=== PATIENT | female | born 1940 | race Caucasian/White ===

== ENCOUNTER 2024-11-30 07:56 | Inpatient (IN) | payer MEDICARE ==
[2024-11-30] MEDS: SODIUM CHLORIDE 0.9% 500 ML 500 ML IV ONE (08:27)
[2024-11-30 08:38] LABS: Basophils # (A) 0.06 10*3/uL (0.00-0.10); Basophils % (A) 0.9 %; Eosinophils # (A) 0.04 10*3/uL (0.04-0.35); Eosinophils % (A) 0.6 %; HCT 34.1 % (37.2-46.3); HGB 11.4 g/dL (12.0-15.0); Lymphocytes # (A) 1.61 10*3/uL (0.90-5.00); Lymphocytes % (A) 24.1 %; MCH 31.5 pg (27.0-32.0); MCHC 33.4 g/dL (32.0-37.0); MCV 94.2 fL (80.0-97.0); Mean Platelet Volume 10.4 fL (9.5-12.2); Monocytes # (A) 0.54 10*3/uL (0.20-1.00); Monocytes % (A) 8.1 %; Neutrophils # (A) 4.04 10*3/uL (1.80-7.70); Neutrophils % (A) 60.6 %; Platelet Count 187 10*3/uL (140-440); RBC 3.62 10*6/uL (4.10-5.20); RDW 14.7 % (11.5-14.5); WBC 6.67 10*3/uL (4.50-10.00)
[2024-11-30 08:51] LABS: ALT 9 U/L (4-34); AST 18 U/L (14-36); African American GFR (CKD) 62 (>60 ml/min/1.73 sqM); Albumin 3.8 g/dL (3.5-5.0); Alkaline Phosphatase 68 U/L (38-126); Anion Gap 9 mmol/L; Blood Urea Nitrogen 23 mg/dL (7-17); Calcium 9.2 mg/dL (8.4-10.2); Carbon Dioxide 19 mmol/L (22-30); Chloride 114 mmol/L (98-107); Glucose 120 mg/dL (74-99); Non-African American GFR(CKD) 54 (>60 ml/min/1.73 sqM); Potassium 3.9 mmol/L (3.5-5.1); Sodium 142 mmol/L (137-145); Total Bilirubin 0.5 mg/dL (0.2-1.3); Total Protein 6.9 g/dL (6.3-8.2)
--- NOTE | 2024-11-30 09:01 | XR ---
EXAMINATION TYPE: XR chest 2V DATE OF EXAM: 11/30/2024 8:55 AM COMPARISON: Chest radiographs from 01/21/2012 TECHNIQUE: XR chest 2V Frontal and lateral views of the chest. CLINICAL INDICATION:Female, 84 years old with history of altered mental status; FINDINGS: Lungs/Pleura: There is no evidence of pleural effusion, focal consolidation, or pneumothorax. Pulmonary vascularity: Unremarkable. Heart/mediastinum: Cardiomediastinal silhouette is enlarged. Atherosclerotic calcifications are seen in the aorta. Musculoskeletal: No acute osseous pathology. IMPRESSION: 1. No acute cardiopulmonary disease/process. 2. Cardiomegaly. [facility], , 11/30/2024 8:59 AM
[2024-11-30 09:09] LABS: Partial Thromboplastin Time 19.7 sec (22.0-30.0)
--- NOTE | 2024-11-30 09:09 | CT ---
EXAMINATION TYPE: CT brain garrett wo con DATE OF EXAM: 11/30/2024 COMPARISON: CT brain 2011 CLINICAL INDICATION: Female, 84 years old with history of multiple falls, multiple falls. and AMS, ne ck pain. TECHNIQUE: CT scan of the head and cervical spine are performed without contrast. CT DLP: 1264.9 mGycm. Automated Exposure Control for Dose Reduction was Utilized. FINDINGS: There is no acute intracranial hemorrhage or midline shift identified. Moderate to severe ventricular and sulcal prominence is now seen. Mild to moderate low-attenuation in the periventricul ar white matter is now present. Persistent 1.4 cm ossified meningioma right frontal lobe axial image 36. The calvarium is intact. The globes are intact bilaterally. [id number] opacification anter ior ethmoid sinuses bilaterally is redemonstrated. Dependent fluid left maxillary sinus. There is mod erate mucosal thickening posterior inferior right maxillary sinus with additional dependent opacifica tion. Dependent fluid in the right sphenoid sinus. Cervical spine is visualized in its entirety from C1 through upper thoracic levels and demonstrates g rade 1 retrolisthesis C5 on C6 without evidence of acute fracture or dislocation. Prevertebral soft tissue appears within normal limits. The C1-C2 articulation is within normal limits on the coronal i mages. Vertebral body heights are preserved. Moderate disc space narrowing and spurring C4-C5 throug h C6-C7 levels is present. Axial images show multilevel left-sided uncovertebral facet degenerative c hanges. Thyroid gland is normal in size. Lung apices are clear without pneumothorax. IMPRESSION: 1. There is no acute fracture or dislocation evident in the cervical spine. 2. No acute intracranial hemorrhage or midline shift is seen. [facility], , 11/30/2024 9:07 AM
[2024-11-30 10:13] LABS: Appearance,Urine Clear (Clear); Bilirubin,Urine Negative (Negative); Blood,Urine Negative (Negative); Color,Urine Colorless; Glucose,Urine (UA) Negative (Negative); Ketones,Urine Negative (Negative); Leukocyte Esterase,Urine Negative (Negative); Nitrite,Urine Negative (Negative); Protein,Urine Negative (Negative); Specific Gravity,Urine 1.016 (1.001-1.035); Urobilinogen,Urine <2.0 mg/dL (<2.0)
--- NOTE | 2024-11-30 11:53 | ED ---
Altered Mental Status HPI - General Chief Complaint: Altered Mental Status Stated Complaint: AMS Time Seen by Provider: 11/30/24 08:03 Source: EMS Mode of arrival: EMS - History of Present Illness Initial Comments: 84-year-old female with past medical history of hypertension who presents emergency department with altered mental status. Daughter is at bedside and helps provide the history. States that the patient has been confused. She has been weak and had 2 unwitnessed falls the other day. The daughter stayed with her last night as she was worried about her. States that the patient was having difficulty ambulating. She is slow to respond to questioning. Patient previously lived alone and controlled all of her medications and meals however patient has no capacity to do this at this time. She was concern for urinary tract infection. Patient cannot provide much history. She denies any pain. Denies hitting her head. No other alleviating, precipitating or modifying factors - Related Data Home Medications Medication Instructions Recorded Confirmed Aspirin EC [Ecotrin] 325 mg PO DAILY 11/30/24 11/30/24 Donepezil [Aricept] 5 mg PO HS 11/30/24 11/30/24 Rosuvastatin Calcium 5 mg PO DAILY 11/30/24 11/30/24 Topiramate [Topamax] 50 mg PO BID 11/30/24 11/30/24 carvediloL [Coreg] 12.5 mg PO BID-W/MEALS 11/30/24 11/30/24 Previous Rx's Medication Instructions Recorded Topiramate [Topamax] 50 mg PO BID tab 12/04/24 Allergies Allergy/AdvReac Type Severity Reaction Status Date / Time No Known Allergies Allergy Verified 11/30/24 13:56 Review of Systems ROS Statement: Those systems with pertinent positive or pertinent negative responses have been documented in the HPI. ROS Other: All systems not noted in ROS Statement are negative. Past Medical History Past Medical History: Hypertension, Myocardial Infarction ([place]) Additional Past Medical History / Comment(s): heart disease History of Any Multi-Drug Resistant Organisms: None Reported Past Surgical History: Hernia Repair Smoking Status: Former smoker Past Alcohol Use History: None Reported Past Drug Use History: None Reported General Exam General appearance: alert, lethargic Head exam: Present: atraumatic, normocephalic, normal inspection Eye exam: Present: normal appearance, PERRL, EOMI. Absent: scleral icterus, conjunctival injection, periorbital swelling ENT exam: Present: normal exam, mucous membranes moist Neck exam: Present: normal inspection. Absent: tenderness, meningismus, lymphadenopathy Respiratory exam: Present: normal lung sounds bilaterally. Absent: respiratory distress, wheezes, rales, rhonchi, stridor Cardiovascular Exam: Present: regular rate, normal rhythm, normal heart sounds. Absent: systolic murmur, diastolic murmur, rubs, gallop, clicks GI/Abdominal exam: Present: soft, normal bowel sounds. Absent: distended, tenderness, guarding, rebound, rigid Extremities exam: Present: normal inspection, full ROM, normal capillary refill. Absent: tenderness, pedal edema, joint swelling, calf tenderness Back exam: Present: normal inspection Neurological exam: Present: alert, oriented X3, CN II-XII intact Psychiatric exam: Present: normal affect, normal mood Skin exam: Present: warm, dry, intact, normal color. Absent: rash Course Vital Signs 11/30/24 11/30/24 11/30/24 07:57 10:00 13:06 Temperature 98.8 F Pulse Rate 65 71 72 Respiratory 18 20 18 Rate Blood Pressure 176/70 172/74 175/76 O2 Sat by Pulse 98 97 98 Oximetry 11/30/24 11/30/24 11/30/24 14:25 16:57 18:00 Temperature Pulse Rate 69 76 62 Respiratory 20 18 18 Rate Blood Pressure 152/70 151/74 159/75 O2 Sat by Pulse 97 98 96 Oximetry 11/30/24 11/30/24 12/01/24 20:00 21:00 00:00 Temperature Pulse Rate 60 60 62 Respiratory 20 20 16 Rate Blood Pressure 145/73 145/68 139/65 O2 Sat by Pulse 96 97 97 Oximetry 12/01/24 12/01/24 12/01/24 02:00 04:00 06:00 Temperature Pulse Rate 58 L 63 60 Respiratory 16 16 16 Rate Blood Pressure 144/66 143/63 162/65 O2 Sat by Pulse 98 97 97 Oximetry Medical Decision Making - Medical Decision Making Was pt. sent in by a medical professional or institution (, PA, SNOWMAKER, urgent care, hospital, or intermediate...) When possible be specific @ -No Did you speak to anyone other than the patient for history (EMS, parent, family, police, friend...)? What history was obtained from this source @ -I spoke with the daughter for history Did you review nursing and triage notes (agree or disagree)? Why? @ -I reviewed and agree with nursing and triage notes Were old charts reviewed (outside hosp., previous admission, EMS record, old EKG, old radiological studies, urgent care reports/EKG's, intermediate records)? Report findings @ -No old charts were reviewed Differential Diagnosis (chest pain, altered mental status, abdominal pain women, abdominal pain men, vaginal bleeding, weakness, fever, dyspnea, syncope, hea dache, dizziness, GI bleed, back pain, seizure, CVA, palpatations, mental health, musculoskeletal)? @ -Differential Altered Mental Status: Hypoglycemia, DKA, hypercapnia, ETOH, overdose, CO poisoning, trauma, myxedema coma, HTN encephalopathy, infection, encephalitis, psychosis, intercranial hemor rhage, hepatic encephalopathy, meningitis, CVA, this is not meant to be an all- inclusive list EKG interpreted by me (3pts min.). @ -yes and demonstrates sinus rhythm with a rate of 63. MI interval 176. QRS 87. QTc of 446. No acute ST segment elevations or depressions X-rays interpreted by me (1pt min.). @ -Yes which demonstrates no acute process CT interpreted by me (1pt min.). @ -Yes which demonstrates no acute process U/S interpreted by me (1pt. min.). @ -None done What testing was considered but not performed or refused? (CT, X-rays, U/S, labs)? Why? @ -None What meds were considered but not given or refused? Why? @ -None Did you discuss the management of the patient with other professionals (professionals i.e. , PA, SNOWMAKER, lab, RT, psych nurse, psychosocial rehabilitation counselor, field care coordinator, teacher, safety officer, returned case inspector)? Give summary @ -Spoke with Dr. Reid who will admit the patient Was smoking cessation discussed for >3mins.? @ -No Was critical care preformed (if so, how long)? @ -No Were there social determinants of health that impacted care today? How? (Homelessness, low income, unemployed, alcoholism, drug addiction, transportation, low edu. Level, literacy, decrease access to med. care, intermediate, rehab)? @ -No Was there de-escalation of care discussed even if they declined (Discuss DNR or withdrawal of care, Hospice)? DNR status @ -No What co-morbidities impacted this encounter? (DM, HTN, Smoking, COPD, CAD, Cancer, CVA, ARF, Chemo, Hep., AIDS, mental health diagnosis, sleep apnea, morbid obesity)? @ -Dementia, hypertension Was patient admitted / discharged? Hospital course, mention meds given and route, prescriptions, significant lab abnormalities, going to OR and other pertinent info. @ -Upon arrival patient seen and evaluated in room 1. Thorough history and physical exam was performed. Access was established. Laboratory studies were conducted. Chest x-ray was performed. Patient does go for CT of the brain. Laboratory testing is all within normal limits. I did discuss this with patient's daughter. Due to her acute altered mental status I did recommend admission for further neurologic workup for which the patient and her daughter were agreeable. I spoke with Dr. Reid for the admission Undiagnosed new problem with uncertain prognosis? @ -Yes Drug Therapy requiring intensive monitoring for toxicity (Heparin, Nitro, Insulin, Cardizem)? @ -No Were any procedures done? @ -No Diagnosis/symptom? @ -Encephalopathy acute Acute, or Chronic, or Acute on Chronic? @ -Acute Uncomplicated (without systemic symptoms) or Complicated (systemic symptoms)? @ -Complicated Side effects of treatment? @ -No Exacerbation, Progression, or Severe Exacerbation? @ -No Poses a threat to life or bodily function? How? (Chest pain, [place], NH, pneumonia, PE, COPD, DKA, ARF, appy, cholecystitis, CVA, Diverticulitis, Homicidal, Suicidal, threat to staff... and all critical care pts) @ -No - Lab Data Result diagrams: 12/04/24 04:09 12/04/24 04:09 Lab Results 11/30/24 11/30/24 11/30/24 Range/Units 08:27 08:27 08:27 WBC 6.67 (4.50-10.00) 10*3/uL RBC 3.62 L (4.10-5.20) 10*6/uL Hgb 11.4 L (12.0-15.0) g/dL Hct 34.1 L (37.2-46.3) % MCV 94.2 (80.0-97.0) fL MCH 31.5 (27.0-32.0) pg MCHC 33.4 (32.0-37.0) g/dL Plt Count 187 (140-440) 10*3/uL MPV 10.4 (9.5-12.2) fL Immature Gran % (Auto) 5.7 % Neutrophils % 60.6 % Lymphocytes % 24.1 % Monocytes % 8.1 % Eosinophils % 0.6 % Basophils % 0.9 % Immature Gran # 0.38 H (0.00-0.04) 10*3/uL Neutrophils # 4.04 (1.80-7.70) 10*3/uL Lymphocytes # 1.61 (0.90-5.00) 10*3/uL Monocytes # 0.54 (0.20-1.00) 10*3/uL Eosinophils # 0.04 (0.04-0.35) 10*3/uL Basophils # 0.06 (0.00-0.10) 10*3/uL Manual Slide Review Performed PT 11.0 (10.0-12.5) sec INR 1.0 (<1.2) APTT 19.7 L (22.0-30.0) sec Sodium 142 (137-145) mmol/L Potassium 3.9 (3.5-5.1) mmol/L Chloride 114 H (98-107) mmol/L Carbon Dioxide 19 L (22-30) mmol/L Anion Gap 9 mmol/L BUN 23 H (7-17) mg/dL Creatinine 0.98 (0.52-1.04) mg/dL Est GFR (CKD-EPI)AfAm 62 (>60 ml/min/1.73 sqM) Est GFR (CKD-EPI)NonAf 54 (>60 ml/min/1.73 sqM) Glucose 120 H (74-99) mg/dL Calcium 9.2 (8.4-10.2) mg/dL Total Bilirubin 0.5 (0.2-1.3) mg/dL AST 18 (14-36) U/L ALT 9 (4-34) U/L Alkaline Phosphatase 68 (38-126) U/L Troponin I (0.000-0.034) ng/mL Total Protein 6.9 (6.3-8.2) g/dL Albumin 3.8 (3.5-5.0) g/dL Urine Color Urine Appearance (Clear) Urine pH (5.0-8.0) Ur Specific Niles (1.001-1.035) Urine Protein (Negative) Urine Glucose (UA) (Negative) Urine Ketones (Negative) Urine Blood (Negative) Urine Nitrite (Negative) Urine Bilirubin (Negative) Urine Urobilinogen (<2.0) mg/dL Ur Leukocyte Esterase (Negative) Topiramate (2.0-20.0) ug/mL 11/30/24 11/30/24 11/30/24 Range/Units 08:27 09:16 09:59 WBC (4.50-10.00) 10*3/uL RBC (4.10-5.20) 10*6/uL Hgb (12.0-15.0) g/dL Hct (37.2-46.3) % MCV (80.0-97.0) fL MCH (27.0-32.0) pg MCHC (32.0-37.0) g/dL Plt Count (140-440) 10*3/uL MPV (9.5-12.2) fL Immature Gran % (Auto) % Neutrophils % % Lymphocytes % % Monocytes % % Eosinophils % % Basophils % % Immature Gran # (0.00-0.04) 10*3/uL Neutrophils # (1.80-7.70) 10*3/uL Lymphocytes # (0.90-5.00) 10*3/uL Monocytes # (0.20-1.00) 10*3/uL Eosinophils # (0.04-0.35) 10*3/uL Basophils # (0.00-0.10) 10*3/uL Manual Slide Review PT (10.0-12.5) sec INR (<1.2) APTT (22.0-30.0) sec Sodium (137-145) mmol/L Potassium (3.5-5.1) mmol/L Chloride (98-107) mmol/L Carbon Dioxide (22-30) mmol/L Anion Gap mmol/L BUN (7-17) mg/dL Creatinine (0.52-1.04) mg/dL Est GFR (CKD-EPI)AfAm (>60 ml/min/1.73 sqM) Est GFR (CKD-EPI)NonAf (>60 ml/min/1.73 sqM) Glucose (74-99) mg/dL Calcium (8.4-10.2) mg/dL Total Bilirubin (0.2-1.3) mg/dL AST (14-36) U/L ALT (4-34) U/L Alkaline Phosphatase (38-126) U/L Troponin I <0.012 (0.000-0.034) ng/mL Total Protein (6.3-8.2) g/dL Albumin (3.5-5.0) g/dL Urine Color Colorless Urine Appearance Clear (Clear) Urine pH 7.0 (5.0-8.0) Ur Specific Niles 1.016 (1.001-1.035) Urine Protein Negative (Negative) Urine Glucose (UA) Negative (Negative) Urine Ketones Negative (Negative) Urine Blood Negative (Negative) Urine Nitrite Negative (Negative) Urine Bilirubin Negative (Negative) Urine Urobilinogen <2.0 (<2.0) mg/dL Ur Leukocyte Esterase Negative (Negative) Topiramate 9.7 (2.0-20.0) ug/mL Disposition Clinical Impression: Acute encephalopathy, Falls Disposition: ADMITTED IP TO THIS [facility] Condition: Stable Is patient prescribed a controlled substance at d/c from ED?: No Time of Disposition: 13:52 Decision to Admit Reason: Admit from EC Decision Date: 11/30/24 Decision Time: 13:52
[2024-11-30] MEDS ORDERED: NALOXONE 0.4 MG/ML 1 ML VIAL IV PRN (13:52)
[2024-11-30] MEDS: SODIUM CHLORIDE 0.9% 1,000 ML IV SCH (14:28)
[2024-11-30] MEDS ORDERED: ACETAMINOPHEN TAB 325 MG TAB PO PRN (15:42)
--- NOTE | 2024-11-30 15:47 | P.HPIM ---
History of Present Illness H&P Date: 11/30/24 This is an 84-year-old female medical history of hypertension, myocardial infarction, former smoker, memory impairment. Patient follows with Dr. De Leon on outpatient basis. Family bedside states that she recently underwent a mental status evaluation and scoring a 25 out of 30 consistent with moderate dementia. She has maintained on donepazil. Patient does live alone per the family. Has been falling over the last couple days and last night was noted to be confused and difficulty with ambulation and balancing while up to the bathroom per her daughter at the bedside. Patient is alert and oriented x 3 and currently resting comfortably in the ER. There are no focal neurological deficits evid ent. Patient denies any chest pain or shortness of breath. Head cervical spine CT revealed no acute fracture or dislocation evident in the cervical spine. No acute intracranial hemorrhage or midline shift is seen. Chest x-ray reveals no acute cardiopulmonary disease/process with cardiomegaly. EKG reveals sinus rhythm with a heart rate of 63. White blood cell count 6.67, hemoglobin 11.4. Sodium level of 142 BUN of 23 creatinine of 0.98. Glucose of 120. Troponin level was negative. Urinalysis was negative for infection. She will be evaluated by neurology and admitted for a stroke rule out. REVIEW OF SYSTEMS: CONSTITUTIONAL: No fever, no malaise, no fatigue. HEENT: No recent visual problems or hearing problems. Denied any sore throat. CARDIOVASCULAR: No chest pain, orthopnea, PND, no palpitations, no syncope. PULMONARY: No shortness of breath, no cough, no hemoptysis. GASTROINTESTINAL: No diarrhea, no nausea, no vomiting, no abdominal pain. NEUROLOGICAL: No headaches, no weakness, no numbness. HEMATOLOGICAL: Denies any bleeding or petechiae. GENITOURINARY: Denies any burning micturition, frequency, or urgency. MUSCULOSKELETAL/RHEUMATOLOGICAL: Denies any joint pain, swelling, or any muscle pain. ENDOCRINE: Denies any polyuria or polydipsia. The rest of the 14-point review of systems is negative. PHYSICAL EXAMINATION: GENERAL: The patient is alert and oriented x3, not in any acute distress. Well developed, well nourished. HEENT: Pupils are round and equally reacting to light. EOMI. No scleral icterus. No conjunctival pallor. Normocephalic, atraumatic. No pharyngeal erythema. No thyromegaly. CARDIOVASCULAR: S1 and S2 present. No murmurs, rubs, or gallops. PULMONARY: Chest is clear to auscultation, no wheezing or crackles. ABDOMEN: Soft, nontender, nondistended, normoactive bowel sounds. No palpable organomegaly. MUSCULOSKELETAL: No joint swelling or deformity. EXTREMITIES: No cyanosis, clubbing, or pedal edema. NEUROLOGICAL: Gross neurological examination did not reveal any focal deficits. SKIN: No rashes. Assessment and plan Altered mental status rule out TIA/ischemic stroke no signs of infection at this time Hypertension Dyslipidemia Former smoker Hx memory impairment and suspected moderate dementia GI prophylaxis DVT prophylaxis Full code Plan Resume appropriate home medications Pending neurology consultation PT OT and speech therapy been consulted Patient is admitted in observation The impression and plan of care has been dictated by Jessica Leonard Nurse Practitioner as directed. Dr. Jeanette MD I have performed a history and physical examination and medical decision making of this patient, discussed the same with the dictator, and agree with the dictators assessment and plan as written, documented as a scribe. Based on total visit time, I have performed more than 50% of this visit. Past Medical History Past Medical History: Hypertension, Myocardial Infarction ([place]) Additional Past Medical History / Comment(s): heart disease History of Any Multi-Drug Resistant Organisms: None Reported Past Surgical History: Hernia Repair Smoking Status: Former smoker Past Alcohol Use History: None Reported Past Drug Use History: None Reported Medications and Allergies Home Medications Medication Instructions Recorded Confirmed Type Aspirin EC [Ecotrin] 325 mg PO DAILY 11/30/24 11/30/24 History Donepezil [Aricept] 5 mg PO HS 11/30/24 11/30/24 History Rosuvastatin Calcium 5 mg PO DAILY 11/30/24 11/30/24 History Topiramate [Topamax] 50 mg PO BID 11/30/24 11/30/24 History carvediloL [Coreg] 12.5 mg PO BID-W/MEALS 11/30/24 11/30/24 History Allergies Allergy/AdvReac Type Severity Reaction Status Date / Time No Known Allergies Allergy Verified 11/30/24 13:56 Physical Exam Vitals: Vital Signs Temp Pulse Resp BP Pulse Ox 11/30/24 14:25 69 20 152/70 97 11/30/24 13:06 72 18 175/76 98 11/30/24 10:00 71 20 172/74 97 11/30/24 07:57 98.8 F 65 18 176/70 98 Intake and Output 11/30/24 11/30/24 11/30/24 06:59 14:59 22:59 Output Total 300 Balance -300 Output: Urine 300 Straight 300 Other: Weight 63.503 kg Results CBC & Chem 7: 11/30/24 08:27 11/30/24 08:27 Labs: Abnormal Lab Results - Last 24 Hours (Table) 11/30/24 11/30/24 11/30/24 Range/Units 08:27 08:27 08:27 RBC 3.62 L (4.10-5.20) 10*6/uL Hgb 11.4 L (12.0-15.0) g/dL Hct 34.1 L (37.2-46.3) % Immature Gran # 0.38 H (0.00-0.04) 10*3/uL APTT 19.7 L (22.0-30.0) sec Chloride 114 H (98-107) mmol/L Carbon Dioxide 19 L (22-30) mmol/L BUN 23 H (7-17) mg/dL Glucose 120 H (74-99) mg/dL Assessment and Plan Time with Patient: Less than 30
[2024-11-30 17:14] LABS: Glucose,Whole Blood 118 mg/dL (70-110)
[2024-11-30] MEDS: carvediloL 12.5 MG TAB PO SCH (17:19)
[2024-11-30] MEDS: TOPIRAMATE 25 MG TAB PO SCH (21:14)
[2024-11-30] MEDS: HEPARIN SODIUM,PORCINE 5,000 UNIT/ML 1 ML VIAL SQ SCH (21:15)
[2024-11-30] MEDS: DONEPEZIL 5 MG TAB PO SCH (21:15)
[2024-12-01] MEDS: ATORVASTATIN 10 MG TAB PO SCH (09:29)
[2024-12-01] MEDS: ASPIRIN 325 MG TAB PO SCH (09:29)
[2024-12-01 10:14] LABS: Basophils # (A) 0.05 X 10*3/uL (0.00-0.10); Eosinophils # (A) 0.04 X 10*3/uL (0.04-0.35); Eosinophils % (A) 0.8 %; HCT 33.3 % (37.2-46.3); HGB 10.7 g/dL (12.0-15.0); Lymphocytes # (A) 1.47 X 10*3/uL (0.90-5.00); Lymphocytes % (A) 28.3 %; MCH 31.2 pg (27.0-32.0); MCHC 32.1 g/dL (32.0-37.0); MCV 97.1 FL (80.0-97.0); Mean Platelet Volume 11.1 FL (9.5-12.2); Monocytes # (A) 0.53 X 10*3/uL (0.20-1.00); Monocytes % (A) 10.2 %; NRBC Per 100 WBC 0 X 10*3/uL (0.00-0.01); Neutrophils % (A) 57.8 %; Platelet Count 178 X 10*3/uL (140-440); RBC 3.43 X 10*6/uL (4.10-5.20); RDW 15.1 % (11.5-14.5); WBC 5.19 X 10*3/uL (4.50-10.00)
[2024-12-01 10:37] LABS: BUN/Creat Ratio 22.62 Ratio (12.00-20.00); Blood Urea Nitrogen 18.1 mg/dL (9.0-27.0); Calcium 8.4 mg/dL (8.7-10.3); Carbon Dioxide 19.4 mmol/L (21.6-31.8); Chloride 112 mmol/L (96-109); Glucose 93 mg/dL (70-110); Potassium 3.6 mmol/L (3.5-5.5); Sodium 141 mmol/L (135-145)
--- NOTE | 2024-12-01 14:43 | P.CNNES ---
History of Present Illness Consult date: 12/01/24 Requesting physician: Bebe Carrasco Reason for Consult: multiple falls, encephalopathy History of Present Illness: This is an 84-year-old woman presents emergency department because of multiple falls and confusion. Some of the history is obtained from the patient's [id number] who is at bedside. Seems that patient has been doing yard work and her [id number]-[id number]-ulz feels she overdid it on herself raking the leaves exerting herself and patient had 2 falls at night and she stated after fall she had back pain but denies any radicular symptoms and currently does not have any back pain. Upon asking her if she felt her legs gave out she stated possibly. She was crawling on the floor and it seems the fall happened at nighttime. She denies losing consciousness. She lives on her own. There is any upper extremit y weakness, any visual disturbance, any speech difficulty. She does have new onset dementia and she is on Aricept 5 mg daily. No history of seizure. She does have a history of TIA about 8 to 10 years ago. Denies of any headaches. She feels she is doing better. Some of the workup during this hospital visit consisted of: I reviewed the lab workup CT of the head is reported as no acute intracranial hemorrhage or midline shift. I personally reviewed the CT and I agree with the report. I also do not feel the patient has any acute ischemic stroke. If it seems that the patient has a right frontal meningioma. CT cervical spine is reported as no acute fracture or dislocation evident in the cervical spine. Review of Systems As per HPI. Past Medical History Past Medical History: CVA/TIA, Hypertension, Myocardial Infarction (ME) Additional Past Medical History / Comment(s): heart disease, silent heart attack, tia 2018? Last Myocardial Infarction Date:: unknown History of Any Multi-Drug Resistant Organisms: None Reported Past Surgical History: Hernia Repair Additional Past Surgical History / Comment(s): Lumps removed from left breast. Smoking Status: Never smoker Past Alcohol Use History: None Reported Past Drug Use History: None Reported Medications and Allergies Home Medications Medication Instructions Recorded Confirmed Type Aspirin EC [Ecotrin] 325 mg PO DAILY 11/30/24 11/30/24 History Donepezil [Aricept] 5 mg PO HS 11/30/24 11/30/24 History Rosuvastatin Calcium 5 mg PO DAILY 11/30/24 11/30/24 History Topiramate [Topamax] 50 mg PO BID 11/30/24 11/30/24 History carvediloL [Coreg] 12.5 mg PO BID-W/MEALS 11/30/24 11/30/24 History Allergies Allergy/AdvReac Type Severity Reaction Status Date / Time No Known Allergies Allergy Verified 11/30/24 13:56 Physical Examination - Vital Signs Vital Signs: Vital Signs Temp Pulse Pulse Pulse Pulse Pulse Resp 12/01/24 13:53 98.4 F 61 16 12/01/24 11:35 65 68 63 12/01/24 07:48 98.1 F 63 16 12/01/24 06:00 60 16 12/01/24 04:00 63 16 12/01/24 02:00 58 L 16 12/01/24 00:00 62 16 11/30/24 21:00 60 20 11/30/24 20:00 60 20 11/30/24 18:00 62 18 11/30/24 16:57 76 18 BP BP BP BP BP Pulse Ox 12/01/24 13:53 170/74 98 12/01/24 11:35 133/71 101/62 177/70 12/01/24 07:48 168/70 98 12/01/24 06:00 162/65 97 12/01/24 04:00 143/63 97 12/01/24 02:00 144/66 98 12/01/24 00:00 139/65 97 11/30/24 21:00 145/68 97 11/30/24 20:00 145/73 96 11/30/24 18:00 159/75 96 11/30/24 16:57 151/74 98 Intake and Output 11/30/24 12/01/24 12/01/24 22:59 06:59 14:59 Other: Voiding Method Toilet Weight 63.503 kg GENERAL: The patient is sitting in a recliner chair and is not in acute distress. NEUROLOGICAL: Higher mental function: The patient is awake, alert, oriented to self, place and time. Is slow to respond. Patient is following simple commands. No aphasia and no neglect. Cranial nerves: The pupils are round, equal and reactive to light and accommo dation. Visual bhatti are full to confrontation throughout. Extraocular movement is intact no nystagmus is noted. Facial sensation is normal to touch throughout. The facial strength is normal throughout. Hearing is severely decreased bilaterally to hand rub. Tongue is midline and moved [id number] without any difficulty. No dysarthria is noted. Shoulder shrug is normal bilaterally. Motor: Gait is taking short steps but not swaying one side or other and required minimal assistance. The strength is 5 over 5 throughout. Normal tone and bulk. Cerebellum: Normal finger to nose bilaterally. Sensation: Sensation is normal to touch throughout. Reflexes (right/left): 2+ throughout. Plantars are mute bilaterally. Results - Laboratory Findings CBC and BMP: 12/01/24 06:26 12/01/24 06:26 Abnormal Lab Findings: Abnormal Labs 11/30/24 11/30/24 11/30/24 08:27 08:27 08:27 RBC 3.62 L Hgb 11.4 L Hct 34.1 L MCV RDW Immature Gran # 0.38 H APTT 19.7 L Chloride 114 H Carbon Dioxide 19 L BUN 23 H BUN/Creatinine Ratio Glucose 120 H POC Glucose (mg/dL) Calcium 11/30/24 12/01/24 12/01/24 17:12 06:26 06:26 RBC 3.43 L Hgb 10.7 L Hct 33.3 L MCV 97.1 H RDW 15.1 H Immature Gran # 0.10 H APTT Chloride 112 H Carbon Dioxide 19.4 L BUN BUN/Creatinine Ratio 22.62 H Glucose POC Glucose (mg/dL) 118 H Calcium 8.4 L Assessment and Plan Assessment: This is an 84-year-old woman with new onset dementia who presents to the emergency department because of 2 falls and confusion. According to ckjfbxwt-bu-foe she feels the patient exerted herself working on the yard and according the patient maybe her leg gave out. She stated after the fall she had back pain but now she does not have any back pain. Recurrent falls with confusion unknown exact etiology. New onset dementia and patient is on Aricept History of TIA about 8 to 10 years ago Likely right frontal meningioma on the CT Plan: I ordered orthostatic vitals, routine EEG, MRI of the brain, CT lumbar Patient is on aspirin 325 daily and Lipitor 10 mg daily. Continue neurochecks PT OT are consulted Will defer the rest of the medical management to primary and other specialist Plan discussed with the patient, her [id number]-[id number]. Thank you for the consultation Dr. Eliseo harden neurology service tomorrow a.m. Time with Patient: Greater than 30
--- NOTE | 2024-12-01 15:09 | CT ---
EXAMINATION TYPE: CT lumbar spine wo con DATE OF EXAM: 12/01/2024 1:38 PM COMPARISON: None. CLINICAL INDICATION: Female, 84 years old with history of Falls, FALLS, pain TECHNIQUE: CT of the lumbar spine is performed on a spiral scan at 3 mm thick sections. Reconstructed images are performed in the coronal and sagittal planes. Contrast used: mL of , (none if empty) Oral contrast used: (none if empty) CT DLP: 758 mGycm, Automated exposure control for dose reduction was used. FINDINGS: T11-T12: No focal disc herniation or significant disc bulge is evident. No spinal canal stenosis o r neural foraminal stenosis is present. T12-L1: No focal disc herniation or significant disc bulge is evident. No spinal canal stenosis or neural foraminal stenosis is present. L1-L2: There is narrowing of disc height. Mild contact with the anterior thecal sac is present. No AP spinal canal stenosis is present. Mild left and moderate right foraminal stenosis is present. L2-L3: Mild disc bulge is present. No spinal canal stenosis is evident. Mild to moderate foraminal na rrowing is present bilaterally. L3-L4: Mild broad-based disc bulge is present with anterior thecal sac flattening. No AP spinal canal stenosis present. Facet hypertrophy is present with ligamentum flavum laxity causing some right post erior lateral thecal sac compression. Moderate bilateral foraminal narrowing is present L4-L5: A based disc bulge has mild anterior thecal sac flattening. Mild facet hypertrophy is present. No spinal canal stenosis is present. Moderate to severe bilateral foraminal narrowing is present L5-S1: There is a minimal retrolisthesis of L5 posterior on S1. There is loss of disc height to this level. Mild disc bulge is present. No spinal canal stenosis is evident. Facet hypertrophy is present. Severe bilateral foraminal stenosis is present. Mild posterior retrolisthesis of L5 posterior arch of S1. Vertebral alignment otherwise appears caden l. IMPRESSION: 1. Mild retrolisthesis L5-S1. 2. Degenerative disc changes L5-S1 and to a mild degree L1-2, L2-3. 3. Multilevel wodl-dk-yqaloxib foraminal narrowing. This may be greatest with moderate to severe fora agnes narrowing L4-5 bilaterally. Correlate with radicular symptoms. 4. Vertebral body heights are preserved. No acute osseous abnormality radiographically apparent [facility], , 12/01/2024 3:07 PM
--- NOTE | 2024-12-01 22:34 | P.PN ---
Subjective Progress Note Date: 12/01/24 This is an 84-year-old female medical history of hypertension, myocardial infarction, former smoker, memory impairment. Patient follows with Dr. De Leon on outpatient basis. Family bedside states that she recently underwent a mental status evaluation and scoring a 25 out of 30 consistent with moderate dementia. She has maintained on donepazil. Patient does live alone per the family. Has been falling over the last couple days and last night was noted to be confused and difficulty with ambulation and balancing while up to the bathroom per her daughter at the bedside. Patient is alert and oriented x 3 and currently resting comfortably in the ER. There are no focal neurological deficits evident. Patient denies any chest pain or shortness of breath. Head cervical spine CT revealed no acute fracture or dislocation evident in the cervical spine. No acute intracranial hemorrhage or midline shift is seen. Chest x-ray reveals no acute cardiopulmonary disease/process with cardiomegaly. EKG reveals sinus rhythm with a heart rate of 63. White blood cell count 6.67, hemoglobin 11.4. Sodium level of 142 BUN of 23 creatinine of 0.98. Glucose of 120. Troponin level was negative. Urinalysis was negative for infection. She will be evaluated by neurology and admitted for a stroke rule out. 12/01/2024 Patient evaluated today in follow up. Sitting up in the chair. Family at the bedside. Lumbar spine CT reveals moderate to severe foraminal narrowing L4-5 bilaterally. Correlate with radicular symptoms. Among other finding. She is awaiting EEG and brain MRI. REVIEW OF SYSTEMS: CONSTITUTIONAL: No fever, no malaise, no fatigue. HEENT: No recent visual problems or hearing problems. Denied any sore throat. CARDIOVASCULAR: No chest pain, orthopnea, PND, no palpitations, no syncope. PULMONARY: No shortness of breath, no cough, no hemoptysis. GASTROINTESTINAL: No diarrhea, no nausea, no vomiting, no abdominal pain. NEUROLOGICAL: No headaches, no weakness, no numbness. slight left facial droop and weakness on the left side. PHYSICAL EXAMINATION: GENERAL: The patient is alert and oriented x3, not in any acute distress. Well developed, well nourished. HEENT: Pupils are round and equally reacting to light. EOMI. No scleral icterus. No conjunctival pallor. Normocephalic, atraumatic. No pharyngeal erythema. No thyromegaly. CARDIOVASCULAR: S1 and S2 present. No murmurs, rubs, or gallops. PULMONARY: Chest is clear to auscultation, no wheezing or crackles. ABDOMEN: Soft, nontender, nondistended, normoactive bowel sounds. No palpable organomegaly. MUSCULOSKELETAL: No joint swelling or deformity. EXTREMITIES: No cyanosis, clubbing, or pedal edema. NEUROLOGICAL: Gross neurological examination did not reveal any focal deficits. SKIN: No rashes. Assessment and plan Altered mental status rule out TIA/ischemic stroke no signs of infection at this time Hypertension Dyslipidemia Former smoker Hx memory impairment and suspected moderate dementia GI prophylaxis DVT prophylaxis Full code Plan Resume appropriate home medications Pending neurology consultation PT OT and speech therapy been consulted PT recommending GUNNER on discharge Continue normal saline at 75 mls/hr Pending MRI and EEG The impression and plan of care has been dictated by Jessica Leonard, Nurse Practitioner as directed. Dr. Jeanette MD I have performed a history and physical examination and medical decision making of this patient, discussed the same with the dictator, and agree with the dictators assessment and plan as written, documented as a scribe. Based on total visit time, I have performed more than 50% of this visit. Objective - Vital Signs Vital signs: Vital Signs Temp 98.4 F 12/01/24 13:53 Pulse 61 12/01/24 13:53 Resp 16 12/01/24 13:53 BP 170/74 12/01/24 13:53 Pulse Ox 98 12/01/24 13:53 FiO2 Intake & Output 11/30/24 12/01/24 12/01/24 18:59 06:59 18:59 Output Total 300 Balance -300 Weight 63.503 kg 63.503 kg Output: Urine 300 Straight 300 Other: Voiding Method Toilet - Labs CBC & Chem 7: 12/01/24 06:26 12/01/24 06:26 Labs: Abnormal Lab Results - Last 24 Hours (Table) 11/30/24 12/01/24 12/01/24 Range/Units 17:12 06:26 06:26 RBC 3.43 L (4.10-5.20) X 10*6/uL Hgb 10.7 L (12.0-15.0) g/dL Hct 33.3 L (37.2-46.3) % MCV 97.1 H (80.0-97.0) FL RDW 15.1 H (11.5-14.5) % Immature Gran # 0.10 H (0.00-0.04) X 10*3/uL Chloride 112 H (96-109) mmol/L Carbon Dioxide 19.4 L (21.6-31.8) mmol/L BUN/Creatinine Ratio 22.62 H (12.00-20.00) Ratio POC Glucose (mg/dL) 118 H (70-110) mg/dL Calcium 8.4 L (8.7-10.3) mg/dL Assessment and Plan Time with Patient: Less than 30
--- NOTE | 2024-12-02 00:01 | EEG ---
ELECTROENCEPHALOGRAM REPORT EEG Report. CLINICAL HISTORY: This is an 84-year-old woman with altered mental status. The video EEG is obtained to evaluate for seizure epileptiform activity. RELEVANT MEDICATION: Topiramate. EEG TYPE: Routine 21-channel EEG with video using the 10/20 electrode system. DESCRIPTION: Wakefulness is only obtained. During awake state, posterior-dominant rhythm consists of ncx-ni-[id number] voltage of 8.5 hertz activity that is well modulated, well sustained. There is no physiological stage 2 sleep architecture. There is no focal slowing. Interictal and ictal is none. ACTIVATION PROCEDURE: Photic stimulation did evoke a posterior driving response at multiple flash frequencies. There is no abnormality during photic stimulation. Hyperventilation is not performed. CLINICAL INTERPRETATION: This is a normal routine EEG during awake state. There is no focal slowing, epileptiform discharge, or seizure on the EEG. A normal routine EEG does not rule out underlying epilepsy. Clinical correlation is recommended. MMMIGUEL / CARLN: [id number] / MTDD
--- NOTE | 2024-12-02 14:40 | P.PN ---
Subjective Progress Note Date: 12/02/24 This is an 84-year-old female medical history of hypertension, myocardial infarction, former smoker, memory impairment. Patient follows with Dr. De Leon on outpatient basis. Family bedside states that she recently underwent a mental status evaluation and scoring a 25 out of 30 consistent with moderate dementia. She has maintained on donepazil. Patient does live alone per the family. Has been falling over the last couple days and last night was noted to be confused and difficulty with ambulation and balancing while up to the bathroom per her daughter at the bedside. Patient is alert and oriented x 3 and currently resting comfortably in the ER. There are no focal neurological deficits evident. Patient denies any chest pain or shortness of breath. Head cervical spine CT revealed no acute fracture or dislocation evident in the cervical spine. No acute intracranial hemorrhage or midline shift is seen. Chest x-ray reveals no acute cardiopulmonary disease/process with cardiomegaly. EKG reveals sinus rhythm with a heart rate of 63. White blood cell count 6.67, hemoglobin 11.4. Sodium level of 142 BUN of 23 creatinine of 0.98. Glucose of 120. Troponin level was negative. Urinalysis was negative for infection. She will be evaluated by neurology and admitted for a stroke rule out. 12/01/2024 Patient evaluated today in follow up. Sitting up in the chair. Family at the bedside. Lumbar spine CT reveals moderate to severe foraminal narrowing L4-5 bilaterally. Correlate with radicular symptoms. Among other finding. She is awaiting EEG and brain MRI. 12/02/2024 Patient is evaluated in follow-up. She is sitting up at the bedside with family present. Lumbar spine discussed. Will follow-up with orthopedic spinal surgery on an outpatient basis. Patient's EEG was not suggestive of any seizure-like activity. She will be going for an MRI at [facility] today. Neurology to follow-up tomorrow. PT recommending subacute rehab. REVIEW OF SYSTEMS: CONSTITUTIONAL: No fever, no malaise, no fatigue. HEENT: No recent visual problems or hearing problems. Denied any sore throat. CARDIOVASCULAR: No chest pain, orthopnea, PND, no palpitations, no syncope. PULMONARY: No shortness of breath, no cough, no hemoptysis. GASTROINTESTINAL: No diarrhea, no nausea, no vomiting, no abdominal pain. NEUROLOGICAL: No headaches, no weakness, no numbness. slight left facial droop and weakness on the left side. PHYSICAL EXAMINATION: GENERAL: The patient is alert and oriented x3, not in any acute distress. Well developed, well nourished. HEENT: Pupils are round and equally reacting to light. EOMI. No scleral icterus. No conjunctival pallor. Normocephalic, atraumatic. No pharyngeal erythema. No thyromegaly. CARDIOVASCULAR: S1 and S2 present. No murmurs, rubs, or gallops. PULMONARY: Chest is clear to auscultation, no wheezing or crackles. ABDOMEN: Soft, nontender, nondistended, normoactive bowel sounds. No palpable organomegaly. MUSCULOSKELETAL: No joint swelling or deformity. EXTREMITIES: No cyanosis, clubbing, or pedal edema. NEUROLOGICAL: Gross neurological examination did not reveal any focal deficits. SKIN: No rashes. Assessment and plan Altered mental status rule out TIA/ischemic stroke no signs of infection at this time Hypertension Dyslipidemia Former smoker Hx memory impairment and suspected moderate dementia moderate to severe foraminal narrowing L4-5 bilaterally GI prophylaxis DVT prophylaxis Full code Plan Resume appropriate home medications Pending neurology consultation PT OT and speech therapy been consulted PT recommending GUNNER on discharge Continue normal saline at 75 mls/hr Encourage oral intake. EEG does not reveal any seizure-like activity. Brain MRI at 445 today. The impression and plan of care has been dictated by Jessica Leonard, Nurse Practitioner as directed. Dr. Jeanette MD I have performed a history and physical examination and medical decision making of this patient, discussed the same with the dictator, and agree with the dictators assessment and plan as written, documented as a scribe. Based on total visit time, I have performed more than 50% of this visit. Objective - Vital Signs Vital signs: Vital Signs Temp 98.5 F 12/02/24 07:55 Pulse 72 12/02/24 07:55 Resp 18 12/02/24 07:55 BP 163/72 12/02/24 07:55 Pulse Ox 97 12/02/24 07:55 FiO2 Intake & Output 12/01/24 12/02/24 12/02/24 18:59 06:59 18:59 Intake Total 380 Balance 380 Weight 63.503 kg Intake: Oral 380 Other: Voiding Method Toilet Toilet # Voids 2 2 - Labs CBC & Chem 7: 12/01/24 06:26 12/01/24 06:26 Assessment and Plan Time with Patient: Less than 30
--- NOTE | 2024-12-02 18:29 | MR ---
EXAMINATION TYPE: MR brain wo con DATE OF EXAM: 12/02/2024 5:12 PM COMPARISON: 11/30/2024. CLINICAL INDICATION: Female, 84 years old with history of confusion; TECHNIQUE: Multi planar, multi sequence imaging was performed through the brain including: T1, T2, In version recovery, Diffusion weighted imaging, and gradient echo imaging. No gadolinium was given. FINDINGS: Right frontal lobe dural based 14 mm extra-axial lesion most compatible with meningioma leonidas kamala low T1 low T2 signal with blooming artifact. Mild cerebral atrophy with proportional dilation of ventricular system. Scattered foci of high T2 signal intensity are seen within the periventricular white matter. Midline structures show no abnormality. Diffusion-weighted imaging shows no evidence of restricted diffusion. The susceptibility weighted images do not reveal any evidence for micro-hemorr varsha. The bone marrow signal is within normal limits. Paranasal sinuses and mastoid air cells: Mild/moderate paranasal sinus mucosal thickening. Trace flui d in the bilateral mastoid air cells. Visualized orbits: Orbital contents are intact. IMPRESSION: 1. No evidence of intracranial mass or acute/subacute infarct. 2. Nonspecific white matter changes, likely secondary to small vessel ischemic disease. 3. Trace bilateral mastoid air cell effusions. 4. Right frontal lobe calcified meningioma. 5. Moderate mucosal thickening of the maxillary sinuses. 6. [facility], , 12/02/2024 6:27 PM
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
[2024-12-04 07:47] VITALS: BP 154/73; RESP 16; TEMP 98.3
[2024-12-04 08:14] LABS: BUN/Creat Ratio 16.62 Ratio (12.00-20.00); Blood Urea Nitrogen 13.3 mg/dL (9.0-27.0); Calcium 8.3 mg/dL (8.7-10.3); Carbon Dioxide 18.4 mmol/L (21.6-31.8); Chloride 110 mmol/L (96-109); Glucose 110 mg/dL (70-110); Potassium 3.7 mmol/L (3.5-5.5); Sodium 137 mmol/L (135-145)
[2024-12-04 08:36] LABS: Basophils # (A) 0.05 X 10*3/uL (0.00-0.10); Eosinophils # (A) 0.07 X 10*3/uL (0.04-0.35); Eosinophils % (A) 1.4 %; HCT 30.3 % (37.2-46.3); HGB 9.9 g/dL (12.0-15.0); Lymphocytes # (A) 1.62 X 10*3/uL (0.90-5.00); Lymphocytes % (A) 33.3 %; MCH 31.4 pg (27.0-32.0); MCHC 32.7 g/dL (32.0-37.0); MCV 96.2 FL (80.0-97.0); Mean Platelet Volume 11.2 FL (9.5-12.2); Monocytes # (A) 0.42 X 10*3/uL (0.20-1.00); Monocytes % (A) 8.6 %; NRBC Per 100 WBC 0 X 10*3/uL (0.00-0.01); Neutrophils # (A) 2.65 X 10*3/uL (1.80-7.70); Neutrophils % (A) 54.7 %; Platelet Count 156 X 10*3/uL (140-440); RBC 3.15 X 10*6/uL (4.10-5.20); RDW 15.6 % (11.5-14.5); WBC 4.86 X 10*3/uL (4.50-10.00)
--- NOTE | 2024-12-04 08:54 | P.PN ---
Subjective Progress Note Date: 12/03/24 This is an 84-year-old female medical history of hypertension, myocardial infarction, former smoker, memory impairment. Patient follows with Dr. De Leon on outpatient basis. Family bedside states that she recently underwent a mental status evaluation and scoring a 25 out of 30 consistent with moderate dementia. She has maintained on donepazil. Patient does live alone per the family. Has been falling over the last couple days and last night was noted to be confused and difficulty with ambulation and balancing while up to the bathroom per her daughter at the bedside. Patient is alert and oriented x 3 and currently resting comfortably in the ER. There are no focal neurological deficits evident. Patient denies any chest pain or shortness of breath. Head cervical spine CT revealed no acute fracture or dislocation evident in the cervical spine. No acute intracranial hemorrhage or midline shift is seen. Chest x-ray reveals no acute cardiopulmonary disease/process with cardiomegaly. EKG reveals sinus rhythm with a heart rate of 63. White blood cell count 6.67, hemoglobin 11.4. Sodium level of 142 BUN of 23 creatinine of 0.98. Glucose of 120. Troponin level was negative. Urinalysis was negative for infection. She will be evaluated by neurology and admitted for a stroke rule out. 12/01/2024 Patient evaluated today in follow up. Sitting up in the chair. Family at the bedside. Lumbar spine CT reveals moderate to severe foraminal narrowing L4-5 bilaterally. Correlate with radicular symptoms. Among other finding. She is awaiting EEG and brain MRI. 12/02/2024 Patient is evaluated in follow-up. She is sitting up at the bedside with family present. Lumbar spine discussed. Will follow-up with orthopedic spinal surgery on an outpatient basis. Patient's EEG was not suggestive of any seizure-like activity. She will be going for an MRI at 445 today. Neurology to follow-up tomorrow. PT recommending subacute rehab. 12/03/2024 Patient evaluated in follow up. Brain MRI and EEG are both unremarkable. Pending social work follow up for social work follow up. REVIEW OF SYSTEMS: CONSTITUTIONAL: No fever, no malaise, no fatigue. HEENT: No recent visual problems or hearing problems. Denied any sore throat. CARDIOVASCULAR: No chest pain, orthopnea, PND, no palpitations, no syncope. PULMONARY: No shortness of breath, no cough, no hemoptysis. GASTROINTESTINAL: No diarrhea, no nausea, no vomiting, no abdominal pain. NEUROLOGICAL: No headaches, no weakness, no numbness. slight left facial droop and weakness on the left side. PHYSICAL EXAMINATION: GENERAL: The patient is alert and oriented x3, not in any acute distress. Well developed, well nourished. HEENT: Pupils are round and equally reacting to light. EOMI. No scleral icterus. No conjunctival pallor. Normocephalic, atraumatic. No pharyngeal erythema. No thyromegaly. CARDIOVASCULAR: S1 and S2 present. No murmurs, rubs, or gallops. PULMONARY: Chest is clear to auscultation, no wheezing or crackles. ABDOMEN: Soft, nontender, nondistended, normoactive bowel sounds. No palpable organomegaly. MUSCULOSKELETAL: No joint swelling or deformity. EXTREMITIES: No cyanosis, clubbing, or pedal edema. NEUROLOGICAL: Gross neurological examination did not reveal any focal deficits. SKIN: No rashes. Assessment and plan Altered mental status rule out TIA/ischemic stroke no signs of infection at this time Hypertension Dyslipidemia Former smoker Hx memory impairment and suspected moderate dementia moderate to severe foraminal narrowing L4-5 bilaterally GI prophylaxis DVT prophylaxis Full code Plan Resume appropriate home medications Pending neurology consultation PT OT and speech therapy been consulted PT recommending G[facility] on discharge Continue normal saline at 75 mls/hr Encourage oral intake. EEG does not reveal any seizure-like activity. Brain MRI reveals no stroke Social work to follow up Wednesday The impression and plan of care has been dictated by Jessica Leonard, Nurse Practitioner as directed. Dr. Jeanette MD I have performed a history and physical examination and medical decision making of this patient, discussed the same with the dictator, and agree with the dictators assessment and plan as written, documented as a scribe. Based on total visit time, I have performed more than 50% of this visit. Objective - Vital Signs Vital signs: Vital Signs Temp 98.2 F 12/03/24 20:00 Pulse 64 12/03/24 20:00 Resp 16 12/03/24 14:00 BP 162/71 12/03/24 20:00 Pulse Ox 98 12/03/24 14:00 FiO2 Intake & Output 12/03/24 12/03/24 12/04/24 06:59 18:59 06:59 Intake Total 480 Balance 480 Intake: Oral 480 Other: Voiding Method Toilet Toilet # Voids 2 - Labs CBC & Chem 7: 12/04/24 04:09 12/04/24 04:09 Assessment and Plan Time with Patient: Less than 30
--- NOTE | 2024-12-04 09:44 | P.DS ---
Providers Date of admission: 11/30/24 13:55 Attending physician: Sierra Reid Consults: 11/30/24 13:52 Consult Physician Urgent Consulting Provider: Jose Moss Consult Reason/Comments: multiple falls, encephalopathy Do you want consulting provider notified?: Yes Primary care physician: Gorge De Leon [facility] Course: Final Diagnosis Altered mental status rule out TIA/ischemic stroke no signs of infection at this time Hypertension Dyslipidemia Former smoker Hx memory impairment and suspected moderate dementia moderate to severe foraminal narrowing L4-5 bilaterally Discharge Disposition Patient stable for discharge to subacute rehab today. Authorization is pending at this time if you see patient will be medically cleared for discharge today. Recommend to follow with Dr. De Leon in 1 to 2 days and recommend to repeat her blood work in 3 to 4 days. Hospital Course This is an 84-year-old female medical history of hypertension, myocardial infarction, former smoker, memory impairment. Patient follows with Dr. De Leon on outpatient basis. Family bedside states that she recently underwent a mental status evaluation and scoring a 25 out of 30 consistent with moderate dementia. She has maintained on donepazil. Patient does live alone per the family. Has been falling over the last couple days and last night was noted to be confused and difficulty with ambulation and balancing while up to the bathroom per her daughter at the bedside. Patient is alert and oriented x 3 and currently resting comfortably in the ER. There are no focal neurological deficits evident. Patient denies any chest pain or shortness of breath. Head cervical spine CT revealed no acute fracture or dislocation evident in the cervical spine. No acute intracranial hemorrhage or midline shift is seen. Chest x-ray reveals no acute cardiopulmonary disease/process with cardiomegaly. EKG reveals sinus rhythm with a heart rate of 63. White blood cell count 6.67, hemoglobin 11.4. Sodium level of 142 BUN of 23 creatinine of 0.98. Glucose of 120. Troponin level was negative. Urinalysis was negative for infection. Patient had a neurological workup. Patient's EEG was not suggestive of any seizure-like activity. Brain MRI reveals no evidence of intracranial mass or subacute/acute infarct. There is nonspecific white matter changes likely secondary to small vessel ischemic disease. Trace bilateral mastoid air cell effusions. A right frontal lobe calcified meningioma. Moderate mucosal thickening of the maxillary sinuses. Patient was eval by physical therapy recommending subacute rehab on discharge. She was found to have mildly positive orthostatic pressures. She was given fluids and these have significantly improved. This could be the reason for the fall. Patient is awake alert and oriented following commands no focal logical deficits noted. She will be cleared for discharge to subacute rehabilitation once insurance authorization has been received. Please see medication reconciliation for a list of current medications. Thank you for allowing us to participate in the care of this patient. The impression and plan of care has been dictated by Jessica Leonard, Nurse Practitioner as directed. Dr. Jeanette MD I have performed a history and physical examination and medical decision making of this patient, discussed the same with the dictator, and agree with the dictators assessment and plan as written, documented as a scribe. Based on total visit time, I have performed more than 50% of this visit. Patient Condition at Discharge: Stable Plan - Discharge Summary Discharge Rx Participant: Yes New Discharge Prescriptions: New Topiramate [Topamax] 50 mg PO BID tab Continue Rosuvastatin Calcium 5 mg PO DAILY Donepezil [Aricept] 5 mg PO HS Aspirin EC [Ecotrin] 325 mg PO DAILY carvediloL [Coreg] 12.5 mg PO BID-W/MEALS Topiramate [Topamax] 50 mg PO BID Discharge Medication List Aspirin EC [Ecotrin] 325 mg PO DAILY 11/30/24 [History] Donepezil [Aricept] 5 mg PO HS 11/30/24 [History] Rosuvastatin Calcium 5 mg PO DAILY 11/30/24 [History] Topiramate [Topamax] 50 mg PO BID 11/30/24 [History] carvediloL [Coreg] 12.5 mg PO BID-W/MEALS 11/30/24 [History] Topiramate [Topamax] 50 mg PO BID tab 12/04/24 [Rx] Follow up Appointment(s)/Referral(s): Gorge De Leon MD [Primary Care Provider] - 1-2 days Ambulatory/Diagnostic Orders: Basic Metabolic Panel [LAB.AMB] Location: None Selected Complete Blood Count w/diff [LAB.AMB] Time Frame: 3 Days, Location: None Selected Discharge Disposition: TRANSFER TO SNF/ECF
[2024-12-04 09:55] VITALS: PULSE 62
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
== END 2024-12-04 13:47 | DRG 312 ==
LOC: EC 07:56 → 5NMEDONC 13:55 → OBSVTOIN 13:55 → 5NMEDONC 20:41
PROVIDERS: ADMIT Internal Medicine; ATTEND Internal Medicine
DX: I95.1 Orthostatic hypotension (principal); G92.9 Unspecified toxic encephalopathy; F03.B0 Unspecified dementia, moderate, without behavioral disturbance, psychotic disturbance, mood disturbance, and anxiety; I10 Essential (primary) hypertension; D32.0 Benign neoplasm of cerebral meninges; E78.5 Hyperlipidemia, unspecified; R29.6 Repeated falls; M48.061 Spinal stenosis, lumbar region without neurogenic claudication; R42 Dizziness and giddiness; T42.6X5A Adverse effect of other antiepileptic and sedative-hypnotic drugs, initial encounter; T44.1X5A Adverse effect of other parasympathomimetics [cholinergics], initial encounter; I25.2 Old myocardial infarction; Z87.891 Personal history of nicotine dependence; Z79.82 Long term (current) use of aspirin; Z86.73 Personal history of transient ischemic attack (TIA), and cerebral infarction without residual deficits; Z79.899 Other long term (current) drug therapy; Z91.81 History of falling
CPT/HCPCS: 36415; 51701; 70450; 70551; 71046; 72125; 72131; 80048; 80053; 80201; 81003; 84484; 85025; 85610; 85730; 93005; 95816; 96360; 96372; 99285